=== PATIENT | female | born 1940 | race Asian ===

== ENCOUNTER 2019-06-27 04:36 | Inpatient (IN) | payer MEDICAID ==
[~2019-06-27] VITALS: Ht 160 cm; Wt 61.7 kg
[2019-06-27 08:09] LABS: PLATELET COUNT 175 x10^3mcL (130-400); RED CELL DISTRIBUTION WIDTH 12.8 % (11.5-14.5)
[2019-06-27 08:10] LABS: BASOPHIL % 0 % (0-2)
[2019-06-27 08:12] LABS: CARBON DIOXIDE 25.7 mmol/L (21-32); CHLORIDE SERUM 100 mmol/L (98-107); CREATININE SERUM 0.8 mg/dL (0.6-1.0); GLUCOSE SERUM 114 mg/dL (74-106); POTASSIUM SERUM 3.1 mmol/L (3.5-5.1); SODIUM SERUM 137 mmol/L (136-145)
[2019-06-27 08:17] LABS: ALBUMIN 3.8 g/dL (3.4-5.0); ALKALINE PHOSPHATASE 69 U/L (46-116); ALT/SGPT 25 U/L (14-59); AST/SGOT 17 U/L (15-37); BILIRUBIN TOTAL 0.67 mg/dL (0.20-1.00); LIPASE 125 IU/L (73-393); TOTAL PROTEIN, SERUM 7.6 g/dL (6.4-8.2)
[2019-06-27 08:34] LABS: UA SPECIFIC GRAVITY 1.015 (1.005-1.035); microscopic required? YES; urine erythrocyte 3+ (NEGATIVE)
[2019-06-27] MEDS ORDERED: LIPI10 (10:17)
[2019-06-27] MEDS ORDERED: VALSARTAN40 MG (10:17)
[2019-06-27 11:34] LABS: MAGNESIUM 2.1 mg/dL (1.8-2.4); PHOSPHOROUS 3.5 mg/dL (2.5-4.9)
[2019-06-27 11:40] LABS: CHOLESTEROL/HDL RATIO 2.1
[2019-06-27 15:25] VITALS: BP 117/72
[2019-06-27 17:17] VITALS: BP 108/51
[2019-06-27 19:52] VITALS: BP 109/58
[2019-06-27] MEDS ORDERED: LIPITOR40 MG PO (21:23)
[2019-06-27] MEDS ORDERED: DIOVAN HCT1 TA2 PO (21:24)
[2019-06-28 05:11] VITALS: BP 137/66
[2019-06-28 07:25] LABS: CALCIUM 7.4 mg/dL (8.5-10.1); CARBON DIOXIDE 24.3 mmol/L (21-32); CHLORIDE SERUM 108 mmol/L (98-107); CREATININE SERUM 0.9 mg/dL (0.6-1.0); GLUCOSE SERUM 109 mg/dL (74-106); POTASSIUM SERUM 3.2 mmol/L (3.5-5.1); SODIUM SERUM 141 mmol/L (136-145)
[2019-06-28 08:31] LABS: BASOPHIL % 0.4 % (0-2); PLATELET COUNT 151 x10^3mcL (130-400); RED CELL DISTRIBUTION WIDTH 13.6 % (11.5-14.5)
[2019-06-28 09:04] VITALS: BP 121/61
[2019-06-28 11:31] VITALS: BP 121/61
== END 2019-06-28 14:06 | disposition short-term general hospital (02) ==
LOC: ED 04:36 → MU 10:53
PROVIDERS: Emergency Medicine; ADMIT General Practice
DX: K80.10 Calculus of gallbladder with chronic cholecystitis without obstruction (principal); E87.2 Acidosis; E86.0 Dehydration; I10 Essential (primary) hypertension; E78.5 Hyperlipidemia, unspecified; Z98.51 Tubal ligation status
CPT/HCPCS: G0378; J1885; J2405; J2543; J3480; J3490; J7030; Q0092